=== PATIENT | female | born 1975 | race Hispanic/Latino ===

== ENCOUNTER 2022-03-28 20:15 | Inpatient (IN) | payer OTHER ==
[~2022-03-28] VITALS: Ht 160 cm; Wt 90.0 kg
[2022-03-28 20:50] LABS: BASOPHILS % (AUTO) 0.7 % (0.0-5.0); EOSINOPHILS % (AUTO) 2.6 % (0.0-8.0); HEMATOCRIT 21.4 % (36-48); LYMPHOCYTES % (AUTO) 25.3 % (21.0-51.0); MEAN CORPUSCULAR HEMOGLOBIN 29.6 pg (27.0-33.0); MEAN CORPUSCULAR HGB CONC 32.2 g/dL (32.0-36.0); MEAN CORPUSCULAR VOLUME 91.8 fL (79-99); MONOCYTES % (AUTO) 7.7 % (3.0-13.0); PLATELET COUNT (AUTO) 162 K/uL (130-400); RED BLOOD CELL COUNT(AUTO) 2.33 MIL/uL (4.00-5.50); RED CELL DISTRIBUTION WIDTH 18.1 % (11.0-15.5); WHITE BLOOD COUNT (AUTO) 8.1 K/uL (4.8-10.8)
[2022-03-28] MEDS ORDERED: ONDANSETRON 4MG INJ IVP ONE (21:00)
[2022-03-28] MEDS ORDERED: PANTOPRAZOLE 40 MG/VIAL IVP ONE (21:00)
[2022-03-28 21:01] LABS: CREATININE 0.5 mg/dL (0.5-1.5); INR 1.02 (0.85-1.15); POTASSIUM 4.5 mmol/L (3.5-5.1); PROTHROMBIN TIME 11.1 SEC (9.6-11.6)
[2022-03-28 21:03] LABS: PARTIAL THROMBOPLASTIN TIME 21.7 SEC (26.3-35.5)
[2022-03-28 21:06] LABS: ALBUMIN 2.6 g/dL (3.5-5.0); TOTAL PROTEIN, SERUM 5.9 g/dL (6.0-8.3)
[2022-03-28] MEDS ORDERED: IOHEXOL 350 MG/ML 100ML INFUS..BTL IV ONE (21:27)
[2022-03-28 22:14] LABS: APPEARANCE,URINE CLEAR (CLEAR); BILIRUBIN,URINE NEGATIVE (NEGATIVE); COLOR,URINE YELLOW (YELLOW); GLUCOSE, URINE (UA) >=1000 mg/dL (NEGATIVE); KETONES,URINE 15 mg/dL (NEGATIVE); LEUKOCYTE ESTERASE ,URINE NEGATIVE (NEGATIVE); NITRATE,URINE NEGATIVE (NEGATIVE); OCCULT BLOOD,URINE NEGATIVE (NEGATIVE); PH,URINE 6.5 (5.0-8.0); PROTEIN,URINE NEGATIVE (NEGATIVE); UROBILINOGEN,URINE 0.2 mg/dL (0.2-1.0)
[2022-03-28 22:22] LABS: BACTERIA,URINE Rare /HPF (None Seen); RBC,URINE 0-1 /HPF (0-1); SQUAMOUS EPITHELIAL CELL,UR Few /HPF (0-2); WBC,URINE 0-1 /HPF (0-1)
[2022-03-28] MEDS ORDERED: GLUCAGON 1MG KIT 1 MG ML IM PRN (22:30)
[2022-03-28] MEDS ORDERED: CEFTRIAXONE 1G VIAL IVP ONE (22:30)
[2022-03-28] MEDS ORDERED: ONDANSETRON 4MG INJ IVP PRN (22:30)
[2022-03-28] MEDS: PANTOPRAZOLE 40MG INJ 80 MG in 0.9%NACL 100ML 100 ML IVP SCH (22:30)
[2022-03-28] MEDS ORDERED: ACETAMINOPHEN 325 MG TAB PO PRN (22:30)
[2022-03-28] MEDS ORDERED: OCTREOTIDE ACETATE 100 MCG/ML AMP IVP ONE (22:30)
[2022-03-28] MEDS ORDERED: OCTREOTIDE ACETATE 1,000 MCG in DEXTROSE 5%-WATER 195 ML IV SCH (22:30)
[2022-03-28] MEDS ORDERED: DEXTROSE 50%-WATER 50 ML DISP.SYRIN IV PRN (22:30)
[2022-03-28] MEDS: 0.9%NACL 1000ML 1,000 ML IV SCH (22:30)
[2022-03-28] MEDS ORDERED: OCTREOTIDE ACETATE 200 MCG/ML 5 ML VIAL ONE (22:55)
[2022-03-28] MEDS ORDERED: OCTREOTIDE ACETATE 100 MCG/ML AMP ONE (22:55)
[2022-03-29 03:05] VITALS: BP 139/71
[2022-03-29] MEDS ORDERED: SIMV10TA97 PO (03:28)
[2022-03-29] MEDS ORDERED: METF-446 PO (03:28)
[2022-03-29] MEDS ORDERED: LISI5TAB21 PO (03:28)
[2022-03-29] MEDS ORDERED: INSU100I35 SQ ×2 (03:28)
[2022-03-29 05:33] LABS: HEMATOCRIT 24.5 % (36-48)
[2022-03-29] MEDS: INSULIN HUMULIN R 100 UNIT/ML 3ML SQ SCH ×4 (06:29→20:42)
[2022-03-29 07:06] VITALS: BP 96/60
[2022-03-29] MEDS: MORPHINE 2 MG SYG IVP PRN (08:02)
[2022-03-29] MEDS: PANTOPRAZOLE 40MG INJ 80 MG in 0.9%NACL 100ML 100 ML IVP SCH ×2 (10:13→18:31)
[2022-03-29] MEDS: 0.9%NACL 1000ML 1,000 ML IV SCH ×2 (10:14→21:00)
[2022-03-29] MEDS ORDERED: COMPOUND IV REFRIGERATED 1 EACH IVSOLN MISC PRN (10:30)
[2022-03-29 12:24] VITALS: BP 94/47
[2022-03-29 16:05] VITALS: BP 103/65
[2022-03-29] MEDS: GABAPENTIN 300 MG CAPSULE PO SCH (20:54)
[2022-03-29 22:03] VITALS: BP 96/56
[2022-03-30] VITALS (24 sets, daily range): BP systolic 96–137; BP diastolic 45–76
[2022-03-30] MEDS: MORPHINE 2 MG SYG IVP PRN (04:16)
[2022-03-30] MEDS: PANTOPRAZOLE 40MG INJ 80 MG in 0.9%NACL 100ML 100 ML IVP SCH ×3 (04:18→18:36)
[2022-03-30] MEDS: INSULIN HUMULIN R 100 UNIT/ML 3ML SQ SCH ×4 (06:17→21:15)
[2022-03-30 06:59] LABS: HEMATOCRIT 21.2 % (36-48); MEAN CORPUSCULAR HEMOGLOBIN 29.7 pg (27.0-33.0); MEAN CORPUSCULAR HGB CONC 32.1 g/dL (32.0-36.0); MEAN CORPUSCULAR VOLUME 92.6 fL (79-99); PLATELET COUNT (AUTO) 99 K/uL (130-400); RED BLOOD CELL COUNT(AUTO) 2.29 MIL/uL (4.00-5.50); RED CELL DISTRIBUTION WIDTH 18.5 % (11.0-15.5); WHITE BLOOD COUNT (AUTO) 4.1 K/uL (4.8-10.8)
[2022-03-30 07:10] LABS: CREATININE 0.5 mg/dL (0.5-1.5); POTASSIUM 4.1 mmol/L (3.5-5.1)
[2022-03-30 07:23] LABS: EOSINOPHILS % (MANUAL) 3 % (1-6); LYMPHOCYTES % (MANUAL) 19 % (22-44); MAN.DIFF COMMENT-IMPRESSION MANUAL DIFFERENTIAL; MONOCYTES % (MANUAL) 2 % (2-9); SEGMENTED NEUTROPHILS % 76 % (40-70)
[2022-03-30 07:25] LABS: PLATELET MORPHOLOGY COMMENT SLIGHTLY DECREASED
[2022-03-30] MEDS: GABAPENTIN 300 MG CAPSULE PO SCH ×3 (08:30→21:17)
[2022-03-30] MEDS: 0.9%NACL 1000ML 1,000 ML IV SCH ×2 (10:39→19:02)
[2022-03-30] MEDS ORDERED: LIDOCAINE HCL 1% 20 ML VIAL ONE (16:03)
[2022-03-30] MEDS ORDERED: PROPOFOL 10 MG/ML 20ML VIAL IV ONE (16:03)
[2022-03-30 19:18] LABS: HEMATOCRIT 25.4 % (36-48)
[2022-03-30] MEDS: PROPRANOLOL HCL 20 MG TAB PO SCH (21:16)
[2022-03-30] MEDS: PANTOPRAZOLE 40 MG TAB DR PO SCH (21:16)
[2022-03-31 04:40] VITALS: BP 85/50
[2022-03-31 05:34] LABS: CREATININE 0.5 mg/dL (0.5-1.5); POTASSIUM 4.1 mmol/L (3.5-5.1)
[2022-03-31 05:39] LABS: BASOPHILS % (AUTO) 0.6 % (0.0-5.0); EOSINOPHILS % (AUTO) 3.4 % (0.0-8.0); HEMATOCRIT 28.2 % (36-48); LYMPHOCYTES % (AUTO) 25.7 % (21.0-51.0); MEAN CORPUSCULAR HEMOGLOBIN 30.2 pg (27.0-33.0); MEAN CORPUSCULAR HGB CONC 32.3 g/dL (32.0-36.0); MEAN CORPUSCULAR VOLUME 93.7 fL (79-99); MONOCYTES % (AUTO) 9.7 % (3.0-13.0); NEUTROPHILS % (AUTO) 60.2 % (40.0-77.0); PLATELET COUNT (AUTO) 115 K/uL (130-400); RED BLOOD CELL COUNT(AUTO) 3.01 MIL/uL (4.00-5.50); RED CELL DISTRIBUTION WIDTH 17.4 % (11.0-15.5); WHITE BLOOD COUNT (AUTO) 5.1 K/uL (4.8-10.8)
[2022-03-31] MEDS: PROPRANOLOL HCL 20 MG TAB PO SCH (07:00)
[2022-03-31 08:00] VITALS: BP 97/59
[2022-03-31] MEDS: INSULIN HUMULIN R 100 UNIT/ML 3ML SQ SCH ×3 (08:59→16:29)
[2022-03-31] MEDS ORDERED: MAGNESIUM CITRATE 296 ML SOLUTION PO SCH (09:00)
[2022-03-31] MEDS: PANTOPRAZOLE 40 MG TAB DR PO SCH (09:19)
[2022-03-31] MEDS: 0.9%NACL 1000ML 1,000 ML IV SCH (09:19)
[2022-03-31] MEDS: GABAPENTIN 300 MG CAPSULE PO SCH ×2 (09:19→14:17)
[2022-03-31 12:00] VITALS: BP 100/67
[2022-03-31] MEDS ORDERED: PANT40TA PO (13:28)
[2022-03-31] MEDS ORDERED: GABA300C PO (13:28)
[2022-03-31] MEDS ORDERED: PROP20TA96 PO (13:28)
[2022-03-31 16:00] VITALS: BP 96/53
== END 2022-03-31 17:55 | disposition home or self-care (01) | DRG 433 ==
LOC: EDH 20:15 → OBSVTOIN 20:16 → INTOOBSV 20:16 → EDHIP 20:16 → 3AH 03-29 03:05
PROVIDERS: ADMIT Internal Medicine; ATTEND Internal Medicine
PROC: 30233N1 Transfusion of Nonautologous Red Blood Cells into Peripheral Vein, Percutaneous Approach (ICD-10-PCS; 2022-03-28)
PROC: 0DB68ZX Excision of Stomach, Via Natural or Artificial Opening Endoscopic, Diagnostic (ICD-10-PCS; principal; 2022-03-30)
DX: K74.60 Unspecified cirrhosis of liver (principal); I85.10 Secondary esophageal varices without bleeding; K76.6 Portal hypertension; K92.0 Hematemesis; Z20.822 Contact with and (suspected) exposure to COVID-19; D64.9 Anemia, unspecified; K29.70 Gastritis, unspecified, without bleeding; D50.9 Iron deficiency anemia, unspecified; E11.9 Type 2 diabetes mellitus without complications; E78.00 Pure hypercholesterolemia, unspecified; I10 Essential (primary) hypertension; Z90.49 Acquired absence of other specified parts of digestive tract
CPT/HCPCS: 36415; 36430; 43239; 74177; 76700; 80048; 80053; 81001; 82948; 84484; 85014; 85018; 85025; 85610; 85730; 86850; 86900; 86901; 86923; 87635; 93005; 99291; C9113; G0378; J1815; J2354; J2405; J2704; J7030; P9016; Q9967

== ENCOUNTER 2022-08-12 09:05 | Emergency (ER) | payer OTHER ==
[~2022-08-12] VITALS: Ht 157.5 cm; Wt 90.7 kg
[~2022-08-12 09:05] MED LIST: GABA300C PO; INSU100I35 SQ; LISI5TAB21 PO; METF-446 PO; PANT40TA PO; PROP20TA96 PO; SIMV10TA97 PO
[2022-08-12 09:31] LABS: BASOPHILS % (AUTO) 0.4 % (0.0-5.0); EOSINOPHILS % (AUTO) 0.6 % (0.0-8.0); HEMATOCRIT 39.3 % (36-48); LYMPHOCYTES % (AUTO) 17.7 % (21.0-51.0); MEAN CORPUSCULAR HGB CONC 33.3 g/dL (32.0-36.0); MEAN CORPUSCULAR VOLUME 87.1 fL (79-99); MONOCYTES % (AUTO) 3.2 % (3.0-13.0); NEUTROPHILS % (AUTO) 77.7 % (40.0-77.0); PLATELET COUNT (AUTO) 128 K/uL (130-400); RED BLOOD CELL COUNT(AUTO) 4.51 MIL/uL (4.00-5.50); RED CELL DISTRIBUTION WIDTH 17.7 % (11.0-15.5)
[2022-08-12 09:45] LABS: CREATININE 0.7 mg/dL (0.5-1.5); POTASSIUM 3.9 mmol/L (3.5-5.1)
[2022-08-12 09:51] LABS: ALBUMIN 3.4 g/dL (3.5-5.0); TOTAL PROTEIN, SERUM 8.2 g/dL (6.0-8.3)
[2022-08-12 09:51] LABS: APPEARANCE,URINE CLOUDY (CLEAR); BILIRUBIN,URINE NEGATIVE (NEGATIVE); COLOR,URINE YELLOW (YELLOW); GLUCOSE, URINE (UA) >=1000 mg/dL (NEGATIVE); KETONES,URINE 60 mg/dL (NEGATIVE); LEUKOCYTE ESTERASE ,URINE 75 Leu/uL (NEGATIVE); NITRATE,URINE NEGATIVE (NEGATIVE); OCCULT BLOOD,URINE NEGATIVE (NEGATIVE); PROTEIN,URINE 50 mg/dL (NEGATIVE); UROBILINOGEN,URINE 0.2 mg/dL (0.2-1.0)
[2022-08-12] MEDS ORDERED: ONDANSETRON 4MG INJ IVP STA (09:58)
[2022-08-12 10:09] LABS: BACTERIA,URINE RARE /HPF (None Seen); MUCUS,URINE RARE LPF (None Seen); SQUAMOUS EPITHELIAL CELL,UR MANY /HPF (0-2)
[2022-08-12 10:37] VITALS: BP 128/6
[2022-08-12] MEDS ORDERED: ONDA4TAB10 PO (12:09)
== END 2022-08-12 12:39 | disposition home or self-care (01) ==
LOC: EDH 09:05
DX: K74.60 Unspecified cirrhosis of liver (principal); R11.2 Nausea with vomiting, unspecified; D64.9 Anemia, unspecified; E11.9 Type 2 diabetes mellitus without complications; E78.00 Pure hypercholesterolemia, unspecified; I10 Essential (primary) hypertension; Z90.49 Acquired absence of other specified parts of digestive tract; Z98.890 Other specified postprocedural states; Z79.899 Other long term (current) drug therapy; Z79.84 Long term (current) use of oral hypoglycemic drugs; Z79.4 Long term (current) use of insulin
CPT/HCPCS: 99284; 96374; 84484; 80053; 85025; 87088; 81001; 36415; 93005; J2405

== ENCOUNTER 2023-04-05 20:52 | Emergency (ER) | payer BC ==
[~2023-04-05] VITALS: Ht 157.5 cm; Wt 88.0 kg
[~2023-04-05 20:52] MED LIST changes: +ONDA4TAB10 PO
[2023-04-05 21:02] VITALS: BP 149/79; PULSE 87; RESP 20
[2023-04-05] MEDS ORDERED: 0.9% NACL 500ML IV.SOLN 500 ML IV ONE (22:30)
[2023-04-05] MEDS ORDERED: ONDANSETRON 4MG INJ IVP ONE (22:30)
[2023-04-05 22:58] LABS: BASOPHILS # (AUTO) 0.04 K/uL (0.00-0.20); BASOPHILS % (AUTO) 0.5 % (0.0-5.0); EOSINOPHILS # (AUTO) 0.76 K/uL (0.00-0.70); EOSINOPHILS % (AUTO) 9.5 % (0.0-8.0); HEMATOCRIT 41.5 % (36-48); IMMATURE GRANULOCYTE ABSOLUTE 0.02 K/uL (0-1); LYMPHOCYTES # (AUTO) 1.3 K/uL (1.0-4.8); LYMPHOCYTES % (AUTO) 15.9 % (21.0-51.0); MEAN CORPUSCULAR HEMOGLOBIN 32.6 pg (27.0-33.0); MEAN CORPUSCULAR HGB CONC 34.9 g/dL (32.0-36.0); MEAN CORPUSCULAR VOLUME 93.3 fL (79-99); MONOCYTES # (AUTO) 0.5 K/uL (0.1-1.0); MONOCYTES % (AUTO) 6.5 % (3.0-13.0); NEUTROPHILS # (AUTO) 5.4 K/uL (1.8-7.7); NEUTROPHILS % (AUTO) 67.3 % (40.0-77.0); PLATELET COUNT (AUTO) 111 K/uL (130-400); RED BLOOD CELL COUNT(AUTO) 4.45 MIL/uL (4.00-5.50); RED CELL DISTRIBUTION WIDTH 13.8 % (11.0-15.5)
[2023-04-05 23:07] LABS: CREATININE 0.7 mg/dL (0.5-1.5); POTASSIUM 4.1 mmol/L (3.5-5.1)
[2023-04-05 23:16] LABS: ALBUMIN 3.1 g/dL (3.5-5.0); TOTAL PROTEIN, SERUM 7.3 g/dL (6.0-8.3)
[2023-04-05 23:17] LABS: APPEARANCE,URINE CLEAR (CLEAR); BILIRUBIN,URINE NEGATIVE (NEGATIVE); COLOR,URINE YELLOW (YELLOW); GLUCOSE, URINE (UA) NEGATIVE (NEGATIVE); KETONES,URINE 20 mg/dL (NEGATIVE); LEUKOCYTE ESTERASE ,URINE 250 Leu/uL (NEGATIVE); NITRATE,URINE NEGATIVE (NEGATIVE); OCCULT BLOOD,URINE MODERATE (NEGATIVE); PROTEIN,URINE 20 mg/dL (NEGATIVE)
[2023-04-05 23:19] LABS: HCG,QUALITATIVE URINE NEGATIVE (NEGATIVE)
[2023-04-05 23:20] LABS: ADD UA MICROSCOPIC YES
[2023-04-05 23:23] LABS: MUCUS,URINE RARE LPF (None Seen); SQUAMOUS EPITHELIAL CELL,UR FEW /HPF (0-2)
[2023-04-06] MEDS ORDERED: CEFTRIAXONE 1G VIAL ONE (00:51)
[2023-04-06] MEDS ORDERED: CEFTRIAXONE 1G VIAL IVPB ONE (01:00)
[2023-04-06] MEDS ORDERED: LIDOCAINE HCL 2% VISCOUS 15 ML UDCUP PO ONE (01:30)
[2023-04-06] MEDS ORDERED: MAG/ALUM/SIMETH 30 ML UDCUP PO ONE (01:30)
[2023-04-06] MEDS ORDERED: PANT40TA55 PO (01:50)
[2023-04-06] MEDS ORDERED: MAG-55 PO (01:50)
[2023-04-06] MEDS ORDERED: ONDA-104 PO (01:50)
[2023-04-06] MEDS ORDERED: MACR100 PO (02:02)
== END 2023-04-06 02:04 | disposition home or self-care (01) ==
LOC: EDH 20:52
DX: N39.0 Urinary tract infection, site not specified (principal); R10.13 Epigastric pain; E11.9 Type 2 diabetes mellitus without complications; E78.00 Pure hypercholesterolemia, unspecified; Z79.84 Long term (current) use of oral hypoglycemic drugs; Z79.899 Other long term (current) drug therapy; Z90.49 Acquired absence of other specified parts of digestive tract
CPT/HCPCS: 99284; 74176; 96375; 84484; 80053; 82140; 83690; 85025; 87088; 81001; 81025; 36415; 93005; 96365; J7040; J2405; J0696